=== PATIENT | male | born 1945 | race Caucasian/White ===

== ENCOUNTER 2024-04-30 14:07 | Emergency (ER) | payer MEDICARE, SELFPAY ==
[2024-04-30 14:16] VITALS: BP 153/87; PULSE 88; RESP 16; TEMP 36.9; O2SAT 98
--- NOTE | 2024-04-30 14:40 | ED.SKABFB ---
HPI - Skin/Abscess/Foreign Bdy General Chief complaint: Skin/Abscess/Foreign Body Stated complaint: Skin Sore Time Seen by Provider: 04/30/24 14:35 Source: patient and RN notes reviewed Mode of arrival: ambulatory Limitations: no limitations History of Present Illness HPI narrative: 78-year-old male presents with concern for a red sore on his abdomen. He reports he noticed at this morning. He reports it is tender. He denies drainage from the area. He denies general malaise, fever, chills, sweats. MD complaint: abscess/boil Related Data Home Medications Medication Instructions Recorded Confirmed apixaban 5 mg tablet (Eliquis) 5 mg PO BID 04/30/24 04/30/24 digoxin 125 mcg (0.125 mg) tablet 125 mcg PO DAILY 04/30/24 04/30/24 glimepiride 4 mg tablet 4 mg PO DAILY 04/30/24 04/30/24 hydralazine 10 mg tablet 20 mg PO BID 04/30/24 04/30/24 hydrochlorothiazide 25 mg tablet 25 mg PO DAILY 04/30/24 04/30/24 losartan 100 mg tablet 100 mg PO DAILY 04/30/24 04/30/24 metoprolol succinate 200 mg 200 mg PO DAILY 04/30/24 04/30/24 tablet,extended release 24 hr metoprolol succinate 50 mg capsule 50 mg PO DAILY 04/30/24 04/30/24 sprinkle, ext. release 24 hr pravastatin 20 mg tablet 20 mg PO DAILY 04/30/24 04/30/24 tamsulosin 0.4 mg capsule 0.4 mg PO DAILY 04/30/24 04/30/24 terazosin 5 mg capsule 5 mg PO HS 04/30/24 04/30/24 tizanidine 2 mg tablet 2 mg PO HS 04/30/24 04/30/24 Allergies Allergy/AdvReac Type Severity Reaction Status Date / Time No Known Allergies Allergy Verified 04/30/24 14:38 Review of Systems Review of Systems: CONSTITUTIONAL: Denies malaise, chills, sweats, or fever. CARDIOVASCULAR: Denies chest pain, palpitations, or edema. RESPIRATORY: Denies cough or dyspnea. SKIN: Reports red raised tender area on his abdomen MUSCULOSKELETAL: Denies joint pain or myalgia. NEUROLOGIC: Denies headache. All systems reviewed & are unremarkable except as noted in HPI and below PMFSH Comments At time of signature, agree with nursing past medical, surgical, social and family history. There is no relevant family history pertinent to the presenting complaint Exam Narrative: GENERAL: Well-appearing, well-nourished, and in no acute distress. HEAD: Normocephalic, atraumatic. EYES: PERRLA, conjunctivae clear ENT: Mucous membranes moist. NECK: Supple. No lymphadenopathy CHEST: Clear to auscultation. No respiratory distress. HEART: Regular rate and rhythm. SKIN: Warm, dry. Approximately 3 cm x 1/2 cm raised fluctuant erythematous area noted to the left abdomen with a central scab, raised area is surrounded by approximately 0.5 cm of erythema without induration NEURO: Alert and oriented x3. PSYCH: Normal mood and affect Course Course Emergency Course: Patient is aware of diagnosis, understands and agrees to treatment plan. Anticipatory guidance given. Patient agrees to follow-up as directed and is aware of reasons to seek care at the emergency department. Portions of this record may have been created with voice recognition software Level of Care: Express Care Visit Vital Signs Vital signs: Vital Signs Temperature 98.5 F 04/30/24 14:16 Pulse Rate 88 04/30/24 14:16 Respiratory Rate 16 04/30/24 14:16 Blood Pressure 153/87 H 04/30/24 14:16 Pulse Oximetry 98 04/30/24 14:16 Oxygen Delivery Room Air 04/30/24 14:16 Temperature 98.5 F 04/30/24 14:16 Pulse Rate 88 04/30/24 14:16 Respiratory Rate 16 04/30/24 14:16 Blood Pressure 153/87 H 04/30/24 14:16 Pulse Oximetry 98 04/30/24 14:16 Oxygen Delivery Room Air 04/30/24 14:16 Reviewed. Procedures Abscess I/D abdomen: Date of Incision: 04/30/24 Time of Incision: 15:05 Side (if applicable): left Local Anesthetic: lidocaine 1% Amount of anesthesia used (mL): 3 Technique: incised with #11 blade Amount of fluid expressed (mL): 4 Irrigation: Yes Packing used?: none
== END 2024-04-30 15:30 | disposition home or self-care (01) ==
PROVIDERS: Emergency Provider Nurse Practitioner; PCP Internal Medicine
DX: L02.211 Cutaneous abscess of abdominal wall (principal); Z79.01 Long term (current) use of anticoagulants
CPT/HCPCS: 10060; 87070; 87075; 87205; 99213; G0463